=== PATIENT | male | born 2000 | race Caucasian/White ===

== ENCOUNTER 2019-09-15 07:59 | Emergency (ER) | payer MEDICAID ==
[~2019-09-15] VITALS: Ht 172.7 cm; Wt 100.0 kg
[~2019-09-15 07:59] MED LIST: CEPHALEXIN 500 MG
[2019-09-15 11:17] VITALS: BP 148/74
== END 2019-09-15 11:19 | disposition home or self-care (01) ==
LOC: ER 07:59
DX: J02.0 Streptococcal pharyngitis (principal); F12.10 Cannabis abuse, uncomplicated
CPT/HCPCS: 87804; 99283

== ENCOUNTER 2021-07-24 00:37 | Emergency (ER) | payer MEDICAID ==
[2021-07-24] MEDS ORDERED: IBUP-2029 MT (14:52)
== END 2021-07-24 02:10 | disposition left against medical advice (07) ==
LOC: ER 00:37
DX: Z53.21 Procedure and treatment not carried out due to patient leaving prior to being seen by health care provider (principal)

== ENCOUNTER 2021-07-24 12:17 | Emergency (ER) | payer MEDICAID ==
[~2021-07-24] VITALS: Ht 172.7 cm; Wt 110.0 kg
[2021-07-24 12:50] VITALS: BP 134/80
[2021-07-24] MEDS ORDERED: IBUPROFEN 800MG TABLET PO ONE (13:30)
[2021-07-24] MEDS ORDERED: IBUP-2029 MT (14:52)
== END 2021-07-24 15:04 | disposition home or self-care (01) ==
LOC: ER 12:17
DX: S60.042A Contusion of left ring finger without damage to nail, initial encounter (principal); V00.131A Fall from skateboard, initial encounter; Y93.89 Activity, other specified; Y92.89 Other specified places as the place of occurrence of the external cause; Y99.8 Other external cause status; I10 Essential (primary) hypertension; F12.10 Cannabis abuse, uncomplicated; Z98.890 Other specified postprocedural states
CPT/HCPCS: 73130; 99283

== ENCOUNTER 2022-02-07 20:13 | Emergency (ER) | payer MEDICAID ==
[~2022-02-07] VITALS: Ht 172.7 cm; Wt 99.3 kg
[~2022-02-07 20:13] MED LIST changes: +IBUP-2029 MT
[2022-02-07 20:54] VITALS: BP 145/90
[2022-02-07] MEDS ORDERED: OFLO5DRO EACHEYE (22:51)
== END 2022-02-07 22:59 | disposition home or self-care (01) ==
LOC: ER 20:13
DX: H10.213 Acute toxic conjunctivitis, bilateral (principal); I10 Essential (primary) hypertension; F12.10 Cannabis abuse, uncomplicated
CPT/HCPCS: 99283

== ENCOUNTER 2023-05-03 09:01 | Emergency (ER) | payer MEDICAID ==
[~2023-05-03] VITALS: Ht 172.7 cm; Wt 100.0 kg
[~2023-05-03 09:01] MED LIST changes: +OFLO5DRO EACHEYE
[2023-05-03 09:12] VITALS: BP 135/96; PULSE 92; RESP 20; TEMP 98.3; O2SAT 96
[2023-05-03] MEDS ORDERED: AMOX1TAB16 MT (09:35)
[2023-05-03] MEDS ORDERED: TOPUD PO (09:35)
[2023-05-03] MEDS ORDERED: IBUP-2028 MT (09:35)
== END 2023-05-03 10:11 | disposition home or self-care (01) ==
LOC: ER 09:01
DX: U07.1 COVID-19 (principal); H66.91 Otitis media, unspecified, right ear; F12.10 Cannabis abuse, uncomplicated; I10 Essential (primary) hypertension
CPT/HCPCS: 99283; 87426; C9803